=== PATIENT | male | born 1950 | race Caucasian/White ===

== ENCOUNTER 2023-01-25 21:31 | Emergency (ER) | payer MEDICARE, MEDICAID, SELFPAY ==
[2023-01-25] VITALS (12 sets, daily range): BP systolic 102–116; BP diastolic 53–60; PULSE 110–132; RESP 23–36; TEMP 37.6; O2SAT 92–99
--- NOTE | 2023-01-25 21:40 | DI.RAD.S_ITS ---
PROCEDURE: XR CHEST 1V INDICATIONS: SOB TECHNIQUE: One view of the chest was acquired. COMPARISON: [facility], CR, XR CHEST 1 VIEW, 06/11/2019, 12:20. FINDINGS: Surgical changes and devices: None. Lungs and pleura: There are extensive bilateral patchy airspace opacities with areas of perihilar confluence. No pleural effusions or pneumothorax. Mediastinum: Mediastinal contours appear normal. Heart size is normal. Bones and chest wall: No suspicious bony lesions. Overlying soft tissues appear unremarkable. IMPRESSION: 1. Bilateral confluent airspace opacities consistent with consolidation likely due to pneumonia. Dictated by: Octavio Knowles M.D. on 01/26/2023 at 0:16 Approved by: Octavio Knowles M.D. on 01/26/2023 at 0:17
--- NOTE | 2023-01-25 21:40 | DI.CT.S_ITS ---
PROCEDURE: CT CERVICAL SPINE WO CON INDICATIONS: fall with head injury TECHNIQUE: Noncontrast 3 mm thick sections acquired from the skull base to the T4 level. Sagittal and coronal reformats were then constructed. For radiation dose reduction, the following was used: automated exposure control, adjustment of mA and/or kV according to patient size. COMPARISON: None. FINDINGS: Image quality: Excellent. Bones: No fractures or subluxation. There is minimal anterolisthesis at C7-T1. Multilevel degenerative disc disease and facet joint arthropathy demonstrated throughout the cervical spine. Visualized superior ribs are intact. Soft tissues: Prevertebral soft tissues are normal in thickness. No paravertebral hematomas. No apical pneumothoraces. There are patchy clustered ground-glass nodular opacities and foci of consolidation within the visualized left upper lobe. IMPRESSION: 1. No acute fracture or subluxation. 2. Extensive multilevel degenerative changes throughout the cervical spine. 3. Visualized left upper lobe demonstrates multiple clustered ground-glass nodules and foci of consolidation. The findings are nonspecific but suggestive of atypical pneumonia. Dictated by: Octavio Knowles M.D. on 01/25/2023 at 22:31 Approved by: Octavio Knowles M.D. on 01/25/2023 at 22:33
--- NOTE | 2023-01-25 21:40 | DI.CT.S_ITS ---
PROCEDURE: CT HEAD/BRAIN WO CON INDICATIONS: fall with head injury TECHNIQUE: Noncontrast 4.5 mm thick angled axial sections acquired from the foramen magnum to the vertex, with coronal and sagittal reformats. For radiation dose reduction, the following was used: automated exposure control, adjustment of mA and/or kV according to patient size. COMPARISON: [facility], CT, CT HEAD WITHOUT CONTRAST, 10/21/2019, 18:35. FINDINGS: Image quality: Excellent. CSF spaces: Basal cisterns are patent. No extra-axial fluid collections. The ventricles are unchanged in size and shape. There is moderate cerebral volume loss, with resultant ventricular and sulcal prominence. Ex vacuo dilatation of the left frontal horn redemonstrated. Brain: No intracranial hemorrhage, mass, or mass effect. There are subcortical, periventricular and deep white matter hypodensities consistent with moderate chronic small vessel ischemic changes. There is a encephalomalacia consistent with sequelae of a prior left caudate and basal ganglia infarct. The kurtz-white matter junction appears preserved. There is intracranial internal carotid artery atherosclerosis. Skull and face: Calvarium and visualized facial bones appear intact, without suspicious lesions. Sinuses: Visualized sinuses and mastoids are clear. IMPRESSION: 1. No acute intracranial abnormality. 2. Sequelae of a prior left caudate nucleus and basal ganglia infarct redemonstrated. 3. Moderate chronic white matter small vessel ischemic changes and cerebral volume loss. Dictated by: Octavio Knowles M.D. on 01/25/2023 at 22:29 Approved by: Octavio Knowles M.D. on 01/25/2023 at 22:31
--- NOTE | 2023-01-25 21:43 | ED.GENADULT ---
HPI - General Adult General Chief complaint: Altered Mental Status Stated complaint: GLF Time Seen by Provider: 01/25/23 21:35 History of Present Illness HPI narrative: 72-year-old male with history of significant dementia, prior stroke, hypertension, COPD, prior drug and alcohol dependence presents by EMS from his fdc facility ([facility]) due to an unwitnessed fall in which the patient was found lying on the floor next to his bed. He typically is ambulatory and can be found walking about the facility though slowly and with intent. He was found to have a bump on his head, he takes no thinners. He is quite ill-appearing when EMS arrives and is found to be cyanotic, tachypneic, with respirations in the 40s. He is given bronchodilators with improvement. His baseline is confusion with word salad. He is a DNR with comfort measures Related Data Previous Rx's Medication Instructions Recorded amoxicillin 875 mg-potassium 1 tab PO BID #14 tabs 01/26/23 clavulanate 125 mg tablet morphine 10 mg/5 mL oral solution 5 mg (2.5 mL) PO Q4H PRN pain #100 01/26/23 mL Allergies Allergy/AdvReac Type Severity Reaction Status Date / Time No Allergy Information Allergy Verified 01/26/23 02:27 Available Review of Systems Review of Systems ROS Unobtainable: Unobtainable due to mental status/LOC Exam Initial Vital Signs Initial Vital Signs: Vital Signs Temperature 99.7 F H 01/25/23 21:30 Pulse Rate 130 H 01/25/23 21:30 Respiratory Rate 36 H 01/25/23 21:30 Blood Pressure 108/55 L 01/25/23 21:30 Pulse Oximetry 96 01/25/23 21:30 Oxygen Delivery Method Nasal Cannula 01/25/23 21:30 Oxygen Flow Rate 6 01/25/23 21:30 Course Orders Ordered: Discontinued Medications Sodium Chloride (Normal Saline 0.9%) 1,000 mls @ 1,000 mls/hr IV BOLUS ONE Stop: 01/25/23 23:29 Last Infusion: 01/26/23 01:57 Dose: 0 mls/hr Documented By: Admin: 01/25/23 23:25 Dose: 1,000 mls/hr Documented By: DEVIKA Piperacillin Sod/Tazobactam (Sod 4.5 gm/ Sodium Chloride) 100 mls @ 200 mls/hr IV NOW ONE Stop: 01/26/23 01:47 Last Infusion: 01/26/23 02:58 Dose: 0 mls/hr Documented By: Admin: 01/26/23 01:57 Dose: 200 mls/hr Documented By: SB Ketorolac Tromethamine (Ketorolac 30 Mg/Ml Vial) 15 mg IV NOW ONE Stop: 01/26/23 05:25 Last Admin: 01/26/23 05:35 Dose: 15 mg Documented By: DEVIKA Morphine Sulfate (Morphine 4 Mg/Ml Inj) 4 mg IV NOW ONE Stop: 01/26/23 01:52 Last Admin: 01/26/23 01:56 Dose: 4 mg Documented By: SALBADOR Morphine Sulfate (Morphine 4 Mg/Ml Inj) 4 mg INH Q4H PRN PRN Reason: Pain, Mild (1-3) Last Admin: 01/26/23 02:30 Dose: 4 mg Documented By: SALBADOR Vital Signs Vital signs: Vital Signs - 8 hr 01/25/23 22:03 01/25/23 22:03 01/25/23 22:20 Temperature Pulse Rate 122 H 118 H Respiratory Rate 31 H Blood Pressure 103/53 L Pulse Oximetry 96 Oxygen Delivery Method Oxygen Flow Rate Fraction of Inspired Oxygen 01/25/23 22:20 01/25/23 22:30 01/25/23 22:42 Temperature Pulse Rate 116 H 112 H Respiratory Rate 31 H 26 H Blood Pressure 102/58 L Pulse Oximetry 92 95 Oxygen Delivery Method Oxygen Flow Rate Fraction of Inspired Oxygen 01/25/23 22:42 01/25/23 23:00 01/25/23 23:10 Temperature Pulse Rate 110 H Respiratory Rate 23 Blood Pressure 116/55 L 106/53 L Pulse Oximetry Oxygen Delivery Method Oxygen Flow Rate Fraction of Inspired Oxygen 01/25/23 23:10 01/25/23 23:15 01/25/23 23:15 Temperature Pulse Rate 117 H 114 H Respiratory Rate 26 H 25 H Blood Pressure 102/53 L Pulse Oximetry 96 99 Oxygen Delivery Method Oxygen Flow Rate Fraction of Inspired Oxygen 01/25/23 23:30 01/25/23 23:30 01/25/23 23:45 Temperature Pulse Rate 111 H 112 H Respiratory Rate 24 26 H Blood Pressure 109/57 L Pulse Oximetry 99 99 Oxygen Delivery Method Oxygen Flow Rate Fraction of Inspired Oxygen 01/25/23 23:45 01/26/23 00:00 01/26/23 00:00 Temperature Pulse Rate 116 H Respiratory Rate 27 H Blood Pressure 113/60 120/66 Pulse Oximetry 96 Oxygen Delivery Method Oxygen Flow Rate Fraction of Inspired Oxygen 01/26/23 00:15 01/26/23 00:15 01/26/23 02:31 Temperature Pulse Rate 118 H 129 H Respiratory Rate 30 H 40 H Blood Pressure 123/65 Pulse Oximetry 96 95 Oxygen Delivery Method Nasal Cannula Nasal Cannula Oxygen Flow Rate 6 6 Fraction of Inspired Oxygen 44 01/26/23 00:30 01/26/23 00:30 01/26/23 00:58 Temperature Pulse Rate 123 H Respiratory Rate 29 H Blood Pressure 157/72 H 143/67 H Pulse Oximetry 94 Oxygen Delivery Method Oxygen Flow Rate Fraction of Inspired Oxygen 01/26/23 00:58 01/26/23 01:00 01/26/23 01:01 Temperature Pulse Rate 135 H 134 H 134 H Respiratory Rate 47 H 31 H 40 H Blood Pressure Pulse Oximetry 92 90 L 91 Oxygen Delivery Method Oxygen Flow Rate Fraction of Inspired Oxygen 01/26/23 01:01 01/26/23 01:17 01/26/23 01:17 Temperature Pulse Rate 135 H Respiratory Rate 23 Blood Pressure 142/83 H 135/76 Pulse Oximetry 90 L Oxygen Delivery Method Oxygen Flow Rate Fraction of Inspired Oxygen 01/26/23 01:30 01/26/23 01:30 01/26/23 02:00 Temperature Pulse Rate 133 H 138 H Respiratory Rate 35 H Blood Pressure 120/67 Pulse Oximetry 90 L 93 Oxygen Delivery Method Nasal Cannula Oxygen Flow Rate 6 Fraction of Inspired Oxygen 01/26/23 02:22 01/26/23 02:22 01/26/23 02:23 Temperature Pulse Rate 135 H 133 H Respiratory Rate 47 H 48 H Blood Pressure 65/49 L Pulse Oximetry 92 93 Oxygen Delivery Method Nasal Cannula Oxygen Flow Rate 8 Fraction of Inspired Oxygen 01/26/23 02:23 01/26/23 02:30 01/26/23 02:30 Temperature Pulse Rate 130 H Respiratory Rate 43 H Blood Pressure 69/53 L 107/57 L Pulse Oximetry 95 Oxygen Delivery Method Oxygen Flow Rate Fraction of Inspired Oxygen 01/26/23 03:00 01/26/23 03:00 01/26/23 03:30 Temperature Pulse Rate 122 H Respiratory Rate 35 H Blood Pressure 111/58 L 119/56 L Pulse Oximetry 97 Oxygen Delivery Method Oxygen Flow Rate Fraction of Inspired Oxygen 01/26/23 03:30 01/26/23 04:00 01/26/23 04:00 Temperature Pulse Rate 117 H 115 H Respiratory Rate 31 H 29 H Blood Pressure 120/60 Pulse Oximetry 99 98 Oxygen Delivery Method Nasal Cannula Nasal Cannula Oxygen Flow Rate 6 4 Fraction of Inspired Oxygen 01/26/23 04:30 01/26/23 04:30 01/26/23 05:00 Temperature Pulse Rate 112 H Respiratory Rate 26 H Blood Pressure 125/65 127/65 Pulse Oximetry 100 Oxygen Delivery Method Oxygen Flow Rate Fraction of Inspired Oxygen 01/26/23 05:00 01/26/23 05:20 01/26/23 05:35 Temperature 102.0 F H 102 F H Pulse Rate 111 H Respiratory Rate 26 H Blood Pressure Pulse Oximetry 99 Oxygen Delivery Method Nasal Cannula Oxygen Flow Rate 3 Fraction of Inspired Oxygen Medical Decision Making Lab Data 01/25/23 23:22 01/25/23 23:22 Labs: Lab Results 01/25/23 01/25/23 01/25/23 Range/Units 23:00 23:22 23:22 WBC 3.0 L (4.5-11.0) X10^3/uL RBC 3.84 L (4.5-5.9) X10^6/uL Hgb 9.6 L (13.5-17.5) g/dL Hct 29.4 L (41-53) % MCV 76.6 L (80-100) fL MCH 24.9 L (26-34) PG MCHC 32.5 (30-36) % RDW 17.2 H (11.6-14.8) % Plt Count 293 (150-400) X10^3/uL Neut % (Auto) 84.8 H (50-75) % Lymph % (Auto) 6.4 L (25-40) % [place] % (Auto) 8.7 (3-14) % Eos % (Auto) 0.0 L (2-4) % Baso % (Auto) 0.1 (0-2) % Neut # (Auto) 2500 (6060-7588) /uL Lymph # (Auto) 200 L (6991-9231) /uL [place] # (Auto) 300 (0-900) /uL Eos # (Auto) 0 (0-450) /uL Baso # (Auto) 0 (0-100) /uL PT 15.9 H (10.1-12.7) SECONDS INR 1.4 H (0.9-1.3) APTT 28 (26-36) SECONDS D-Dimer (<500) ng/ml ABG pH 7.45 (7.35-7.45) ABG pCO2 34.6 L (35-45) mmHg ABG pO2 67 L (80-100) mmHg ABG HCO3 24 (23-27) mmol/L ABG Total CO2 25 (23-27) mmol/L ABG O2 Saturation 94 L (95-100) % ABG Base Excess 0.0 (-2-3) mmol/L FiO2 44 Sodium (137-145) mmol/L Potassium (3.4-5.1) mmol/L Chloride (98-107) mmol/L Carbon Dioxide (22-32) mmol/L BUN (9-20) mg/dL Creatinine (0.66-1.25) mg/dL Estimated GFR (>60) mL/min BUN/Creatinine Ratio (6-22) Glucose (80-110) mg/dL Lactate (0.7-2.1) mmol/L Calcium (8.4-10.2) mg/dL Magnesium (1.6-2.3) mg/dL Total Bilirubin (0.2-1.3) mg/dL AST (17-59) IU/L ALT (<50) IU/L Alkaline Phosphatase (38-126) U/L Total Creatine Kinase (55-170) U/L Troponin I (0.01-0.034) ng/mL NT-Pro-B Natriuret Pep (<125) pg/mL Total Protein (6.3-8.2) g/dL Albumin (3.5-5.0) g/dL Globulin (1.7-4.1) g/dL Albumin/Globulin Ratio (1.0-2.8) Lipase (23-300) U/L Urine Color Urine Appearance Urine pH (4.5-8.0) Ur Specific [place] (1.000-1.035) Urine Protein (Negative) Urine Glucose (UA) (Negative) g/dL Urine Ketones (NEGATIVE) Urine Occult Blood (Negative) Urine Nitrate (Negative) Urine Bilirubin (NEGATIVE) Urine Urobilinogen (0.2) E.U./dL Ur Leukocyte Esterase (NEGATIVE) Urine RBC (0-5/HPF) Urine WBC (0-5/HPF) Ur Squamous Epith Cells (0-5/HPF) Urine Bacteria (None) Ur Culture Indicated? Chlamy pneumoniae PCR (Not Detect) Adenovirus (PCR) (Not Detect) B. pertussis DNA (PCR) (Not Detecte) B.parapertussis DNA PCR (Not Detecte) Coronavirus OC43 (PCR) (Not Detect) Coronavirus HKU1 (PCR) (Not Detect) Coronavirus 229E (PCR) (Not Detect) SARS-CoV-2 (PCR) (Not Detecte) Coronavirus NL63 (PCR) (Not Detect) Human Metapneumovir PCR (Not Detect) Influenza Type A (PCR) (Not Detect) Influenza Type B (PCR) (Not Detect) M. pneumoniae (PCR) (Not Detect) Parainfluenza 1 (PCR) (Not Detect) Parainfluenza 2 (PCR) (Not Detect) Parainfluenza 3 (PCR) (Not Detect) Parainfluenza 4 (PCR) (Not Detect) RSV (PCR) (Not Detect) Entero/Rhino (PCR) (Not Detect) 01/25/23 01/25/23 01/25/23 Range/Units 23:22 23:22 23:22 WBC (4.5-11.0) X10^3/uL RBC (4.5-5.9) X10^6/uL Hgb (13.5-17.5) g/dL Hct (41-53) % MCV (80-100) fL MCH (26-34) PG MCHC (30-36) % RDW (11.6-14.8) % Plt Count (150-400) X10^3/uL Neut % (Auto) (50-75) % Lymph % (Auto) (25-40) % [place] % (Auto) (3-14) % Eos % (Auto) (2-4) % Baso % (Auto) (0-2) % Neut # (Auto) (3124-2115) /uL Lymph # (Auto) (8216-9149) /uL [place] # (Auto) (0-900) /uL Eos # (Auto) (0-450) /uL Baso # (Auto) (0-100) /uL PT (10.1-12.7) SECONDS INR (0.9-1.3) APTT (26-36) SECONDS D-Dimer 2104 H (<500) ng/ml ABG pH (7.35-7.45) ABG pCO2 (35-45) mmHg ABG pO2 (80-100) mmHg ABG HCO3 (23-27) mmol/L ABG Total CO2 (23-27) mmol/L ABG O2 Saturation (95-100) % ABG Base Excess (-2-3) mmol/L FiO2 Sodium 142 (137-145) mmol/L Potassium 3.7 (3.4-5.1) mmol/L Chloride 103 (98-107) mmol/L Carbon Dioxide 28 (22-32) mmol/L BUN 35 H (9-20) mg/dL Creatinine 0.94 (0.66-1.25) mg/dL Estimated GFR > 60 (>60) mL/min BUN/Creatinine Ratio 37.2 H (6-22) Glucose 128 H (80-110) mg/dL Lactate 5.5 H* (0.7-2.1) mmol/L Calcium 9.1 (8.4-10.2) mg/dL Magnesium 2.0 (1.6-2.3) mg/dL Total Bilirubin 0.5 (0.2-1.3) mg/dL AST 61 H (17-59) IU/L ALT 45 (<50) IU/L Alkaline Phosphatase 109 (38-126) U/L Total Creatine Kinase 508 H (55-170) U/L Troponin I 0.603 H* (0.01-0.034) ng/mL NT-Pro-B Natriuret Pep 2650 H (<125) pg/mL Total Protein 7.6 (6.3-8.2) g/dL Albumin 4.3 (3.5-5.0) g/dL Globulin 3.3 (1.7-4.1) g/dL Albumin/Globulin Ratio 1.3 (1.0-2.8) Lipase 24 (23-300) U/L Urine Color Urine Appearance Urine pH (4.5-8.0) Ur Specific [place] (1.000-1.035) Urine Protein (Negative) Urine Glucose (UA) (Negative) g/dL Urine Ketones (NEGATIVE) Urine Occult Blood (Negative) Urine Nitrate (Negative) Urine Bilirubin (NEGATIVE) Urine Urobilinogen (0.2) E.U./dL Ur Leukocyte Esterase (NEGATIVE) Urine RBC (0-5/HPF) Urine WBC (0-5/HPF) Ur Squamous Epith Cells (0-5/HPF) Urine Bacteria (None) Ur Culture Indicated? Chlamy pneumoniae PCR (Not Detect) Adenovirus (PCR) (Not Detect) B. pertussis DNA (PCR) (Not Detecte) B.parapertussis DNA PCR (Not Detecte) Coronavirus OC43 (PCR) (Not Detect) Coronavirus HKU1 (PCR) (Not Detect) Coronavirus 229E (PCR) (Not Detect) SARS-CoV-2 (PCR) (Not Detecte) Coronavirus NL63 (PCR) (Not Detect) Human Metapneumovir PCR (Not Detect) Influenza Type A (PCR) (Not Detect) Influenza Type B (PCR) (Not Detect) M. pneumoniae (PCR) (Not Detect) Parainfluenza 1 (PCR) (Not Detect) Parainfluenza 2 (PCR) (Not Detect) Parainfluenza 3 (PCR) (Not Detect) Parainfluenza 4 (PCR) (Not Detect) RSV (PCR) (Not Detect) Entero/Rhino (PCR) (Not Detect) 01/25/23 01/26/23 01/26/23 Range/Units 23:32 01:00 01:15 WBC (4.5-11.0) X10^3/uL RBC (4.5-5.9) X10^6/uL Hgb (13.5-17.5) g/dL Hct (41-53) % MCV (80-100) fL MCH (26-34) PG MCHC (30-36) % RDW (11.6-14.8) % Plt Count (150-400) X10^3/uL Neut % (Auto) (50-75) % Lymph % (Auto) (25-40) % [place] % (Auto) (3-14) % Eos % (Auto) (2-4) % Baso % (Auto) (0-2) % Neut # (Auto) (9446-7464) /uL Lymph # (Auto) (8046-0126) /uL [place] # (Auto) (0-900) /uL Eos # (Auto) (0-450) /uL Baso # (Auto) (0-100) /uL PT (10.1-12.7) SECONDS INR (0.9-1.3) APTT (26-36) SECONDS D-Dimer (<500) ng/ml ABG pH (7.35-7.45) ABG pCO2 (35-45) mmHg ABG pO2 (80-100) mmHg ABG HCO3 (23-27) mmol/L ABG Total CO2 (23-27) mmol/L ABG O2 Saturation (95-100) % ABG Base Excess (-2-3) mmol/L FiO2 Sodium (137-145) mmol/L Potassium (3.4-5.1) mmol/L Chloride (98-107) mmol/L Carbon Dioxide (22-32) mmol/L BUN (9-20) mg/dL Creatinine (0.66-1.25) mg/dL Estimated GFR (>60) mL/min BUN/Creatinine Ratio (6-22) Glucose (80-110) mg/dL Lactate 5.7 H* (0.7-2.1) mmol/L Calcium (8.4-10.2) mg/dL Magnesium (1.6-2.3) mg/dL Total Bilirubin (0.2-1.3) mg/dL AST (17-59) IU/L ALT (<50) IU/L Alkaline Phosphatase (38-126) U/L Total Creatine Kinase (55-170) U/L Troponin I (0.01-0.034) ng/mL NT-Pro-B Natriuret Pep (<125) pg/mL Total Protein (6.3-8.2) g/dL Albumin (3.5-5.0) g/dL Globulin (1.7-4.1) g/dL Albumin/Globulin Ratio (1.0-2.8) Lipase (23-300) U/L Urine Color Yellow Urine Appearance Slightly cloudy Urine pH 5.0 (4.5-8.0) Ur Specific [place] >=1.030 H (1.000-1.035) Urine Protein 2+ H (Negative) Urine Glucose (UA) Negative (Negative) g/dL Urine Ketones Trace H (NEGATIVE) Urine Occult Blood 3+ H (Negative) Urine Nitrate Positive H (Negative) Urine Bilirubin Negative (NEGATIVE) Urine Urobilinogen 1.0 (0.2) E.U./dL Ur Leukocyte Esterase Negative (NEGATIVE) Urine RBC 30-100/hpf H (0-5/HPF) Urine WBC 1-5/hpf (0-5/HPF) Ur Squamous Epith Cells None seen (0-5/HPF) Urine Bacteria Many (>30) H (None) Ur Culture Indicated? Specimen cultured Chlamy pneumoniae PCR Not detected (Not Detect) Adenovirus (PCR) Not detected (Not Detect) B. pertussis DNA (PCR) Not detected (Not Detecte) B.parapertussis DNA PCR Not detected (Not Detecte) Coronavirus OC43 (PCR) Not detected (Not Detect) Coronavirus HKU1 (PCR) Not detected (Not Detect) Coronavirus 229E (PCR) Not detected (Not Detect) SARS-CoV-2 (PCR) Not detected (Not Detecte) Coronavirus NL63 (PCR) Not detected (Not Detect) Human Metapneumovir PCR Not detected (Not Detect) Influenza Type A (PCR) Not detected (Not Detect) Influenza Type B (PCR) Not detected (Not Detect) M. pneumoniae (PCR) Not detected (Not Detect) Parainfluenza 1 (PCR) Not detected (Not Detect) Parainfluenza 2 (PCR) Not detected (Not Detect) Parainfluenza 3 (PCR) Not detected (Not Detect) Parainfluenza 4 (PCR) Not detected (Not Detect) RSV (PCR) Not detected (Not Detect) Entero/Rhino (PCR) Not detected (Not Detect) 01/26/23 Range/Units 05:20 WBC (4.5-11.0) X10^3/uL RBC (4.5-5.9) X10^6/uL Hgb (13.5-17.5) g/dL Hct (41-53) % MCV (80-100) fL MCH (26-34) PG MCHC (30-36) % RDW (11.6-14.8) % Plt Count (150-400) X10^3/uL Neut % (Auto) (50-75) % Lymph % (Auto) (25-40) % [place] % (Auto) (3-14) % Eos % (Auto) (2-4) % Baso % (Auto) (0-2) % Neut # (Auto) (5652-2669) /uL Lymph # (Auto) (4559-9932) /uL [place] # (Auto) (0-900) /uL Eos # (Auto) (0-450) /uL Baso # (Auto) (0-100) /uL PT (10.1-12.7) SECONDS INR (0.9-1.3) APTT (26-36) SECONDS D-Dimer (<500) ng/ml ABG pH (7.35-7.45) ABG pCO2 (35-45) mmHg ABG pO2 (80-100) mmHg ABG HCO3 (23-27) mmol/L ABG Total CO2 (23-27) mmol/L ABG O2 Saturation (95-100) % ABG Base Excess (-2-3) mmol/L FiO2 Sodium (137-145) mmol/L Potassium (3.4-5.1) mmol/L Chloride (98-107) mmol/L Carbon Dioxide (22-32) mmol/L BUN (9-20) mg/dL Creatinine (0.66-1.25) mg/dL Estimated GFR (>60) mL/min BUN/Creatinine Ratio (6-22) Glucose (80-110) mg/dL Lactate (0.7-2.1) mmol/L Calcium (8.4-10.2) mg/dL Magnesium (1.6-2.3) mg/dL Total Bilirubin (0.2-1.3) mg/dL AST (17-59) IU/L ALT (<50) IU/L Alkaline Phosphatase (38-126) U/L Total Creatine Kinase 450 H (55-170) U/L Troponin I 1.900 H* (0.01-0.034) ng/mL NT-Pro-B Natriuret Pep (<125) pg/mL Total Protein (6.3-8.2) g/dL Albumin (3.5-5.0) g/dL Globulin (1.7-4.1) g/dL Albumin/Globulin Ratio (1.0-2.8) Lipase (23-300) U/L Urine Color Urine Appearance Urine pH (4.5-8.0) Ur Specific [place] (1.000-1.035) Urine Protein (Negative) Urine Glucose (UA) (Negative) g/dL Urine Ketones (NEGATIVE) Urine Occult Blood (Negative) Urine Nitrate (Negative) Urine Bilirubin (NEGATIVE) Urine Urobilinogen (0.2) E.U./dL Ur Leukocyte Esterase (NEGATIVE) Urine RBC (0-5/HPF) Urine WBC (0-5/HPF) Ur Squamous Epith Cells (0-5/HPF) Urine Bacteria (None) Ur Culture Indicated? Chlamy pneumoniae PCR (Not Detect) Adenovirus (PCR) (Not Detect) B. pertussis DNA (PCR) (Not Detecte) B.parapertussis DNA PCR (Not Detecte) Coronavirus OC43 (PCR) (Not Detect) Coronavirus HKU1 (PCR) (Not Detect) Coronavirus 229E (PCR) (Not Detect) SARS-CoV-2 (PCR) (Not Detecte) Coronavirus NL63 (PCR) (Not Detect) Human Metapneumovir PCR (Not Detect) Influenza Type A (PCR) (Not Detect) Influenza Type B (PCR) (Not Detect) M. pneumoniae (PCR) (Not Detect) Parainfluenza 1 (PCR) (Not Detect) Parainfluenza 2 (PCR) (Not Detect) Parainfluenza 3 (PCR) (Not Detect) Parainfluenza 4 (PCR) (Not Detect) RSV (PCR) (Not Detect) Entero/Rhino (PCR) (Not Detect) MDM Narrative Medical decision making narrative: 72-year-old male DNR with comfort measures brought by EMS with permission of DPOA for evaluation. He is initially in significant respiratory distress and thankfully response to bronchodilators and steroids. He initially has rising oxygen requirements but responds well to nebulized morphine. Patient is found to have bilateral pneumonia but is holding steady on 4 L of nasal oxygen. He has a rising troponin consistent with NSTEMI. We have discussed with his DPOA and also the nursing facility that they can administer supplemental oxygen and patient can take antibiotics if needed for help resolving pneumonia which could contribute to his comfort. The goal per DPOA is to get him home where he feels safe. The nursing staff that can help accomodate this arrive at [phone] Discharge Plan Departure Patient Disposition: Home Clinical Impression: Pneumonia, Acute respiratory failure with hypoxia Activity Restrictions/Additional Instructions: You have been diagnosed with pneumonia and requiring oxygen. Your workup also shows significant stress your heart or cardiac system showing what appears to be a heart attack or strain on your heart from your illness. Dr. Barker spoke with your family overnight. Plan for antibiotics for comfort, supplemental oxygen as needed. A prescription for morphine is provided you can give 5-10 mg every 4 hours as needed for pain or air hunger. Prescriptions are printed. It may be helpful to have hospice involved if you are interested to assist with keeping you comfortable. If you are unable to maintain comfort at the facility you may return at any time for additional help. Prescriptions: New amoxicillin-pot clavulanate 875-125 mg tablet 1 tab PO BID Qty: 14 0RF morphine 10 mg/5 mL solution 5 mg PO Q4H PRN (Reason: pain) Qty: 100 0RF Stand Alone Forms: Patient Portal/API
[2023-01-25 23:10] LABS: HCO3 ABG 24 mmol/L (23-27); PCO2 ABG 34.6 mmHg (35-45); PO2 ABG 67 mmHg (80-100); TCO2 ABG 25 mmol/L (23-27); pH ABG 7.45 (7.35-7.45)
[2023-01-25 23:11] LABS: Fractionated Inspired Oxygen 44; Oxygen Saturation ABG 94 % (95-100)
[2023-01-25] MEDS: SODIUM CHLORIDE 0.9% 1,000 ML 1000 ML IV (23:25)
[2023-01-25 23:42] LABS: INR 1.4 (0.9-1.3); Prothrombin Time 15.9 SECONDS (10.1-12.7)
[2023-01-25 23:44] LABS: Add Manual Diff / Slide Review NO; Basophils Absolute Auto 0 /uL (0-100); Basophils Percent Auto 0.1 % (0-2); Eosinophils Absolute Auto 0 /uL (0-450); Hematocrit 29.4 % (41-53); Hemoglobin 9.6 g/dL (13.5-17.5); Lymphocytes Absolute Auto 200 /uL (1100-4500); Lymphocytes Percent Auto 6.4 % (25-40); Mean Corpuscular HGB Conc 32.5 % (30-36); Mean Corpuscular Hemoglobin 24.9 PG (26-34); Mean Corpuscular Volume 76.6 fL (80-100); Monocytes Absolute Auto 300 /uL (0-900); Monocytes Percent Auto 8.7 % (3-14); Neutrophils Absolute Auto 2500 /uL (1500-7000); Neutrophils Percent Auto 84.8 % (50-75); Platelet Count 293 X10^3/uL (150-400); Red Blood Cell Count 3.84 X10^6/uL (4.5-5.9); Red Cell Distribution Width 17.2 % (11.6-14.8)
[2023-01-25 23:45] LABS: PTT Partial Thromboplastin Tim 28 SECONDS (26-36)
[2023-01-25 23:50] LABS: Albumin 4.3 g/dL (3.5-5.0); Albumin Globulin Ratio 1.3 (1.0-2.8); Alkaline Phosphatase 109 U/L (38-126); Aspartate Aminotransferase 61 IU/L (17-59); BUN Creatinine Ratio 37.2 (6-22); Bilirubin Total 0.5 mg/dL (0.2-1.3); Blood Urea Nitrogen 35 mg/dL (9-20); Calcium 9.1 mg/dL (8.4-10.2); Carbon Dioxide 28 mmol/L (22-32); Chloride 103 mmol/L (98-107); Creatine Kinase 508 U/L (55-170); Estimated Glomerular Filt Rate > 60 mL/min (>60); Globulin 3.3 g/dL (1.7-4.1); Glucose 128 mg/dL (80-110); HEMOLYSIS < 15 (0-50); Lipase 24 U/L (23-300); Potassium 3.7 mmol/L (3.4-5.1); Sodium 142 mmol/L (137-145); Total Protein 7.6 g/dL (6.3-8.2)
[2023-01-25 23:52] LABS: D Dimer 2104 ng/ml (<500); Lactate (Lactic Acid) 5.5 mmol/L (0.7-2.1)
[2023-01-25 23:56] LABS: Alanine Aminotransferase 45 IU/L (<50)
[2023-01-26] VITALS (37 sets, daily range): BP systolic 65–157; BP diastolic 49–83; PULSE 104–140; RESP 18–48; TEMP 38.2–38.9; O2SAT 87–100
[2023-01-26 00:01] LABS: NT-proBNP (BNP-Adult 18+) 2650 pg/mL (<125)
[2023-01-26 00:03] LABS: Troponin I 0.603 ng/mL (0.01-0.034)
--- NOTE | 2023-01-26 01:00 | PC.NURSE ---
Patient restless and frequently repositioning self in bed, attempting to sit up, and appears uncomfortable. Patient is non-verbal at baseline. Staff bladder scanned patient, revealing 264mls urine in bladder. Urine sample still needing to be collected, plan to in & out cath patient to obtain sample and empty pt's bladder. While preparing to cath pt he began urinating, sample was collected and sent to lab. Patient also noted to be inc. of stool. Patient cleaned and placed in new brief, repositioned for comfort. Patient continues to have labored breathing but appears to be less restless after urinating and being cleaned.
[2023-01-26 01:34] LABS: Reflexed Lactate in 2 Hours Y
[2023-01-26 01:44] LABS: Adenovirus Not Detected (Not Detect); B. parapertussis Not Detected (Not Detecte); Bordetella pertussis Not Detected (Not Detecte); Chlamydophila pneumoniae Not Detected (Not Detect); Coronavirus 229E Not Detected (Not Detect); Coronavirus HKU1 Not Detected (Not Detect); Coronavirus NL 63 Not Detected (Not Detect); Coronavirus OC43 Not Detected (Not Detect); Human Metapneumovirus Not Detected (Not Detect); Human Rhinovirus/Enterovirus Not Detected (Not Detect); Influenza A Not Detected (Not Detect); Influenza B Not Detected (Not Detect); Mycoplasma pneumoniae Not Detected (Not Detect); Parainfluenza Virus 1 Not Detected (Not Detect); Parainfluenza Virus 2 Not Detected (Not Detect); Parainfluenza Virus 3 Not Detected (Not Detect); Parainfluenza Virus 4 Not Detected (Not Detect); Respiratory Syncytial Virus Not Detected (Not Detect); SARS- CoV-2 Not Detected (Not Detecte)
--- NOTE | 2023-01-26 01:45 | DI.CT.S_ITS ---
PROCEDURE: CT ANGIO CHEST PE PROTOCOL INDICATIONS: SOB, tachycardia, critical dimer TECHNIQUE: After the administration of intravenous contrast, 2 mm thick sections acquired from the pulmonary apices to the posterior costophrenic angles. 3-dimensional maximum intensity projection (MIP) coronal and sagittal reformats were then acquired through the thorax. For radiation dose reduction, the following was used: automated exposure control, adjustment of mA and/or kV according to patient size. COMPARISON: [facility], CR, XR CHEST 1V, 01/25/2023, 21:38. FINDINGS: Image quality: Excellent. Pulmonary arteries: Pulmonary arteries are normal in size, and demonstrate no intraluminal filling defects to suggest central pulmonary embolism. Lungs and pleura: Diffuse bilateral patchy airspace opacities are seen No pleural effusions or pneumothorax. Central and peripheral airways are patent. Mediastinum: Heart size is normal. Small pericardial effusion. Three-vessel coronary artery calcifications. No mediastinal or hilar adenopathy. Thoracic aorta is normal in caliber and enhancement. 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 Esophagus is normal in caliber, without hiatal hernia. Bones and chest wall: No suspicious bony lesions. Thyroid unremarkable. No axillary or supraclavicular adenopathy. Abdomen: Visualized upper abdominal solid organs appear normal in the early arterial phase of enhancement. IMPRESSION: 1. No acute pulmonary embolus. 2. Diffuse bilateral pulmonary opacities are suspicious for pneumonia. There is no significant discrepancy when compared to the overnight preliminary report. Approved by: Anupam Tovar M.D. on 01/26/2023 at 8:22
[2023-01-26 01:47] LABS: Lactate 2HR (Lactic Acid Rflx) 5.7 mmol/L (0.7-2.1)
[2023-01-26] MEDS: MORPHINE 4 MG/ML INJ IV (01:56)
[2023-01-26] MEDS: PIPERACILLIN/TAZO 4.5 GM in SODIUM CHLORIDE 0.9% 100 ML IV (01:57)
--- NOTE | 2023-01-26 02:00 | PC.NURSE ---
Patient becoming increasingly restless and having tachycardia and tachypnea. Patient confused and requiring staff to be 1:1 to protect patient's IV lines and to keep NC, leads, and pulse ox in place. IV push morphine given and patient taken to CT with primary RN accompanying. Patient required 8L via NC while lying flat during imaging to keep spO2 above 90%.
[2023-01-26] MEDS: MORPHINE 4 MG/ML INJ INH (02:30)
[2023-01-26 02:43] LABS: Bilirubin Urine UA NEGATIVE (NEGATIVE); Color Urine UA YELLOW; Glucose Urine UA NEGATIVE (Negative); Ketones Urine UA TRACE (NEGATIVE); Leukocyte Esterase Urine UA NEGATIVE (NEGATIVE); Nitrite Urine UA POSITIVE (Negative); Occult Blood Urine UA 3+ (Negative); Protein Urine UA 2+ (Negative); Specific Gravity Urine UA >=1.030 (1.000-1.035)
[2023-01-26 03:00] LABS: Appearance Urine UA Slightly Cloudy; Bacteria Urine Many (>30); Culture Indicated Urine Specimen Cultured; RBC Urine 30-100/HPF (0-5/HPF); Squamous Epithelial Cell Urine None Seen (0-5/HPF); WBC Urine 1-5/HPF (0-5/HPF)
--- NOTE | 2023-01-26 03:57 | PC.NURSE ---
[facility] staff contacted at [phone] and they informed RN that patient's POA (Macie Houser) was contacted and informed of patient's status and they were who approved patient to be transferred to hospital for care. Macie can be reached at [phone].
--- NOTE | 2023-01-26 04:36 | PC.NURSE ---
0432: Attempted to contact Macie (EDMAR) by phone, identified voicemail reached and message left asking Macie to call hospital when she receives message. [phone]: Macie called ER and was informed of patient's current status and diagnosis. Macie is unsure if [facility] can accommodate patient's supplemental oxygen needs. At this time she is okay with patient being admitted to hospital. 0451: [facility] contacted and they report they can accommodate patient's oxygen needs, but transferring him back would be best done after 8am when the head nurse is available to organize needed equipment. 0502: Attempted to call Macie back to discuss transferring patient back to [facility], no answer, message left. 0508: Macie called back, updated that [facility] can support patient's oxygen needs and that she agrees to have patient return to [facility] if appropriate. Macie was informed that this would not happen until after 8am, and that she will be contacted with updates or if needing to discuss new plan of care.
[2023-01-26] MEDS: KETOROLAC 30 MG/ML VIAL 15 MG IV (05:35)
[2023-01-26 05:42] LABS: Creatine Kinase 450 U/L (55-170)
--- NOTE | 2023-01-26 09:42 | PC.NURSE ---
CAUSTICISER NOTE: changed pt bed sheet and brief; provided maira care; and repositioned pt
== END 2023-01-26 13:13 | disposition home or self-care (01) ==
PROVIDERS: Emergency Medicine; Emergency Provider Emergency Medicine
DX: J18.9 Pneumonia, unspecified organism (principal); J96.01 Acute respiratory failure with hypoxia; S09.90XA Unspecified injury of head, initial encounter; W19.XXXA Unspecified fall, initial encounter; F03.90 Unspecified dementia, unspecified severity, without behavioral disturbance, psychotic disturbance, mood disturbance, and anxiety; Z20.822 Contact with and (suspected) exposure to COVID-19
CPT/HCPCS: 36600; 70450; 71045; 71275; 72125; 80053; 81001; 82550; 82805; 83605; 83690; 83735; 83880; 84484; 85025; 85379; 85610; 85730; 87040; 87077; 87086; 87186; 87633; 93005; 96361; 96365; 96375; 99285; J1885; J2270; J2543; Q9967